=== PATIENT | male | born 1960 | race Caucasian/White ===

== ENCOUNTER 2016-12-27 15:17 | Emergency (ER) | payer MEDICARE ==
[2016-12-27 15:47] LABS: BASOPHILS 0.3 % (0-2); EOSINOPHILS 1.9 % (0-7); HEMATOCRIT 42.1 % (42.0-54.0); HEMOGLOBIN 14.3 g/dL (13.5-17.5); IMMATURE GRANULOCYTES 0.3 % (0-5); LYMPHOCYTES 30.4 % (15-50); MCH 30.4 pg (26.0-34.0); MCV 89.6 fL (80.0-100.0); MEAN PLATELET VOLUME 10.6 fL (7.4-10.4); NEUTROPHILS 59.1 % (40-80); PLATELET COUNT 228 10x3/uL (130-400); WBC 7.5 10x3/uL (4.8-10.8)
[2016-12-27 16:07] LABS: ALBUMIN 4.2 g/dL (3.4-5.0); ALKALINE PHOSPHATASE 88 U/L (46-116); ALT (SGPT) 40 U/L (10-68); BILIRUBIN - TOTAL 0.43 mg/dL (0.2-1.3); CALC OSMOLALITY 271 mosm/kg (275-300); CALCIUM 9.1 mg/dL (8.5-10.1); CARBON DIOXIDE 29.8 mmol/L (21.0-32.0); CHLORIDE - SERUM 98 mmol/L (98-107); GLUCOSE 110 mg/dL (74-106); PROTEIN - SERUM 8.3 g/dL (6.4-8.2); SODIUM 135 mmol/L (136-145); UREA NITROGEN 16 mg/dL (7-18); eGFR NON AFRICAN AMERICAN 37 mL/min (90-120)
[2016-12-27 16:17] LABS: CHOL - HDL RATIO 4.2 ratio (2.3-4.9); CHOLESTEROL, TOTAL 162 mg/dL (0-200); CKMB 0.5 U/L (0.0-3.6); CREATINE KINASE 101 UL (21-232); HDL CHOLESTEROL 39 mg/dL (32-96); LDL CHOLESTEROL 87 mg/dL (0-100); LDL-HDL RATIO 2.2 ratio (1.5-3.5); TRIGLYCERIDE 181 mg/dL (30-200)
[2016-12-27 16:18] LABS: TROPONIN-I < 0.017 ng/mL (0.000-0.060)
== END 2016-12-27 19:09 | disposition home or self-care (01) ==
LOC: D.ER 15:17
PROVIDERS: Emergency Medicine
DX: R07.9 Chest pain, unspecified (principal); I10 Essential (primary) hypertension; F17.200 Nicotine dependence, unspecified, uncomplicated

== ENCOUNTER → 2017-03-06 10:12 | Outpatient (CLI) | payer MEDICARE | END | disposition home or self-care (01) | LOC: D.US 10:12 | DX: I83.812 Varicose veins of left lower extremity with pain (principal) ==

== ENCOUNTER → 2017-12-02 19:09 | Outpatient (CLI) | payer MEDICARE, BC | END | disposition home or self-care (01) | LOC: D.SLEEP 19:09 | DX: G47.33 Obstructive sleep apnea (adult) (pediatric) (principal) ==

== ENCOUNTER → 2018-05-12 18:41 | Outpatient (CLI) | payer MEDICARE, BC | END | disposition home or self-care (01) | LOC: D.MAMMO 14:30 | DX: N63.41 Unspecified lump in right breast, subareolar (principal) ==

== ENCOUNTER → 2018-10-08 09:39 | Outpatient (CLI) | payer MEDICARE, BC ==
[~2018-10-08 09:39] MED LIST: CYMBALTA60 MG PO; HYDROCODON-ACE1 EA10 PO; HYDROCODON-ACE1 EAC2 PO; KEFLEX500 MG PO; ZANAFLEX4 MG PO
== END | disposition home or self-care (01) ==
LOC: D.HCCARDIO 09:39
DX: I20.9 Angina pectoris, unspecified (principal)

== ENCOUNTER 2018-10-08 19:21 | Emergency (ER) | payer MEDICARE, BC ==
[~2018-10-08] VITALS: Ht 170.2 cm; Wt 68.2 kg
[2018-10-08 19:32] VITALS: Ht 170.2 cm; Wt 68.2 kg
[2018-10-08] MEDS ORDERED: HYDROCODON-ACE1 EA10 PO (19:34)
[2018-10-08] MEDS ORDERED: CYMBALTA60 MG PO (19:35)
[2018-10-08] MEDS ORDERED: ZANAFLEX4 MG PO (19:35)
[2018-10-08 20:33] LABS: INR 0.97 (0.85-1.17); PROTIME 12.4 SECONDS (11.6-15.0)
[2018-10-08 20:38] LABS: ALBUMIN 3.8 g/dL (3.4-5.0); ALKALINE PHOSPHATASE 89 U/L (46-116); ALT (SGPT) 38 U/L (10-68); BILIRUBIN - TOTAL 0.51 mg/dL (0.2-1.3); CALC OSMOLALITY 263 mosm/kg (275-300); CHLORIDE - SERUM 96 mmol/L (98-107); GLUCOSE 95 mg/dL (74-106); PROTEIN - SERUM 8.6 g/dL (6.4-8.2); SODIUM 133 mmol/L (136-145); UREA NITROGEN 8 mg/dL (7-18); eGFR NON AFRICAN AMERICAN 81 mL/min (90-120)
[2018-10-08 20:47] LABS: CKMB 0.1 U/L (0.0-3.6); CREATINE KINASE 92 UL (21-232); MAGNESIUM - SERUM 1.9 mg/dL (1.8-2.4); TROPONIN-I < 0.017 ng/mL (0.000-0.060)
[2018-10-08 20:52] LABS: BASOPHILS 0.4 % (0-2); EOSINOPHILS 1.2 % (0-7); HEMATOCRIT 39.3 % (42.0-54.0); HEMOGLOBIN 13.5 g/dL (13.5-17.5); IMMATURE GRANULOCYTES 0.2 % (0-5); LYMPHOCYTES 15.2 % (15-50); MCH 30.1 pg (26.0-34.0); MCHC 34.4 g/dL (31.0-37.0); MCV 87.5 fL (80.0-100.0); MONOCYTES 10.8 % (2-11); NEUTROPHILS 72.2 % (40-80); PLATELET COUNT 213 10x3/uL (130-400); RBC 4.49 10x6/uL (4.20-6.10); RDW 13.4 % (11.5-14.5); WBC 11.4 10x3/uL (4.8-10.8)
[2018-10-08] MEDS ORDERED: HYDROCODON-ACE1 EAC2 PO (20:57)
[2018-10-08] MEDS ORDERED: KEFLEX500 MG PO (20:57)
[2018-10-08 21:09] VITALS: BP 158/79
--- NOTE | 2018-10-12 10:45 | ST ---
PATIENT:KATY MENG MEDICAL RECORD: [id number] SEX: M LOCATION:ER ORDER #: ADMISSION DATE: 10/08/18 AGE OF PATIENT: 58 REFERRING PHYSICIAN: INTERPRETING PHYSICIAN: DAVID AYERS MD DATE OF SERVICE: 10/08/2018 PROCEDURE: Nuclear stress test. INDICATION: Angina, abnormal ECG, hypertension. He was exercised on standard Lexiscan protocol with 32 mCi of sestamibi injected at peak stress. A 10 mCi were used previously for rest images. FINDINGS: Gated SPECT reveals preserved ejection fraction at 65% with good wall motion and thickening and brightening throughout all segments. SPECT imaging Cardiolite was used as myocardial fusion agent. There is homogeneous uptake throughout all segments at rest and stress with no evidence of inducible ischemia or previous infarction. OVERALL IMPRESSION: 1. This is a normal nuclear stress test with no evidence of inducible ischemia or previous infarction. 2. Gated SPECT reveals a preserved ejection fraction at 65%. In this patient with ongoing symptomatology, the current scan does not suggest the presence of hemodynamically significant coronary artery disease. Evaluate noncardiac etiology of chest pain. TRANSINT:[id number] Voice Confirmation ID: [id number] DOCUMENT ID: [id number] DAVID AYERS MD at 1045 CC: [id number] DICTATION DATE: 10/09/18 0847 BUSINESS SUPPORT ADMINISTRATOR: 10/09/18 0924 DEP ER 10/08/[address] [address]
== END 2018-10-08 21:10 | disposition home or self-care (01) ==
LOC: D.ER 19:21
PROVIDERS: Emergency Medicine
DX: J06.9 Acute upper respiratory infection, unspecified (principal)

== ENCOUNTER 2019-04-06 11:10 | Outpatient (CLI) | payer MEDICARE, BC ==
[~2019-04-06] VITALS: Ht 170.2 cm; Wt 102.3 kg
--- NOTE | ~2019-04-06 | HEMODYNAMI ---
PATIENT:DAQUAN MENG MEDICAL RECORD: [id number] : 60 LOCATION:DMADI ADMISSION DATE: 04/06/19 Generatedon:04/06/201914:14 Patient name: DAQUAN MENG Patient #: [id number] SSN: [id number] : 1960 Date of study: 04/06/2019 Page: Of Hemodynamic Procedure Report Patient Data Patient Demographics Procedure consent was obtained First Name: DAQUAN Gender: Male Last Name: YUSRA : 1960 [facility] Initial: O Age: 58 year(s) Patient #: [id number] Race: SSN: [id number] Additional ID: [id number] Contact details [address]: [address] [place] [address] State: [place] City: [place] Zip code: [address] Admission Admission Data Admission Date: 04/06/2019 Admission Time: 11:10 Height (in.): 67 BSA: 2.13 (m2) Height (cm.): 170.18 BMI: 35.31 (kg/m2) Weight (lbs.): 225.47 Weight (kg.): 102.27 Lab Results Lab Result Date: 04/06/2019 Lab Result Time: 11:57 Biochemistry Name Units Result Min Max BUN mg/dl 10 --(-*--)-- 7 18 Creatinine mg/dl 1 --(--*-)-- 0.6 1.3 CBC Name Units Result Min Max Hematocrit % 40.7 -*(----)-- 42 54 Hemoglobin g/dl 14 --(*---)-- 13.5 17.5 Procedure Procedure Types Cath Procedure Diagnostic Procedure [facility] w/Coronaries Procedure Description Procedure Date Procedure Date: 04/06/2019 Procedure Start Time: 14:01 Procedure End Time: 14:14 Procedure Staff Name Function Alpesh Haddad MD Performing Physician Jose Antonio Culver RT Monitor Kashmir Perez RT Scrub Daquan Rincon RN Nurse Hafsa Segun RN Cigar Bander Procedure Data Cath Procedure Fluoroscopy Diagnostic fluoroscopy Total fluoroscopy Time: 2.5 time: 2.5 min min Diagnostic fluoroscopy Total fluoroscopy dose: 416 dose: 416 mGy mGy Contrast Material Contrast Material Type Amount (ml) Isovue 300 68 Entry Location Entry Primary Successful Side Size Upsize Upsize Entry Closure Succes sful Closure Location (Fr) 1 (Fr) 2 (Fr) Remarks Device Remarks Femoral Right 5 Fr Exoseal artery Estimated blood loss: 5 ml Diagnostic catheters Device Type Used For End Catheter Placement MULTIPACK Pigtail 5 Fr Procedure catheter MULTIPACK JL 4.0 5Fr Procedure catheter MULTIPACK 3DRC 5Fr Procedure catheter Procedure Complications No complications Procedure Medications Medication Administration Route Dosage 0.9% NaCl I.V. 100 ml/hr Oxygen etCO2 Nasal cannula 2 l/min Lidocaine 2% added to field 20 Heparin Flush Bag added to field 2 bags (1000units/500ml NS) Versed I.V. 2 mg Fentanyl I.V. 100 mcg Versed I.V. 2 mg Fentanyl I.V. 100 mcg Lopressor I.V. 5 mg Hemodynamics Rest BSA: 2.13 (m2) HGB: 14 (g/dl) O2 Consumption: Estimated: 257.59 (ml/min) O2 Cons umption indexed: Estimated:120.93 (ml/min/m) Heart Rate: 78 (bpm) Pressure Samples Time Site Value (mmHg) Purpose Heart Use Rate(bpm) 14:01 LV 156/11,6 Snapshot 145 14:02 AO 198/106(145) Pullback 84 14:02 LV 162/25,8 Pullback 84 Gradients Valve Time Site 1 Site 2 Mean SEP/DFP Peak To Heart Use (mmHg) (sec/min) Peak Rate (mmHg) (bpm) Aortic 14:02 LV AO 0 84 162/25,8 198/106(145) Calculations Valve P-P Mean Valve Index Valve Source Name Gradient Area Flow (cm2) Aortic 0 0 Snapshots Pre Cath Intra NCS Post Cath Vital Signs Time Heart Resp SPO2 etCO2 NIBP (mmHg) Rhythm Pain Sedation Rate (ipm) (%) (mmHg) Status Level (bpm) 13:31:45 82 11 99 0 188/116(144) NSR 0 (11) 10(A) , No pain 13:37:17 80 22 98 0 191/122(173) NSR 0 (11) 10(A) , No pain 13:41:58 76 19 98 0 191/107(157) NSR 0 (11) 10(A) , No pain 13:46:34 78 14 98 0 182/99(109) NSR 0 (11) 10(A) , No pain 13:51:09 76 14 96 0 178/100(140) NSR 0 (11) 10(A) , No pain 13:55:43 82 14 100 35.1 190/110(160) NSR 0 (11) 10(A) , No pain 14:00:14 80 13 99 44.1 167/107(141) NSR 0 (11) 9(A) , No pain 14:04:42 80 23 92 33.6 172/101(126) NSR 0 (11) 9(A) , No pain 14:10:59 74 19 90 41.8 155/90(93) NSR 0 (11) 10(A) , No pain Medications Time Medication Route Dose Verified Delivered Reason Notes E ffectiveness by by 13:34:14 0.9% NaCl I.V. 100 Alpesh Hafsa used for ml/hr St Asa Cast procedure MD ROD 13:34:20 Oxygen etCO2 2 Alpesh Hafsa used for Nasal l/min Vidalia Segun procedure cannula MD ROD 13:34:29 Lidocaine 2% added 20ml Alpesh Alpesh for local to vial [facility] anesthetic field MD TAO 13:34:33 Heparin Flush added 2 Alpesh Alpesh used for Bag to bags [facility] procedure (1000units/500ml field MD TAO NS) 13:54:45 Versed I.V. 2 mg Alpesh Daquan for sedation St Asa Rincon MD, RN 13:54:54 Fentanyl I.V. 100 Alpesh Daquan for sedation mcg [facility] Asa Rincon MD, RN 14:00:08 Versed I.V. 2 mg Alpesh Daquan for sedation St Asa Rincon MD, RN 14:02:00 Fentanyl I.V. 100 Alpesh Daquan for sedation mcg [facility] Asa Rincon MD, RN 14:07:47 Lopressor I.V. 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 13:17:02 ACCPatient has been prescribed/administered the following anti-anginal medication within the last 2 weeks: Calcium Channel Blockers 13:17:05 Procedure Status Elective Heart Cath (OP). 13:17:06 Kashmir Morelyder RT(R) sent for patient. Start room use. 13:17:07 Time tracking: Regular hours (M-F 7:00 - 5:00) 13:17:10 Plan of Care:Hemodynamics will remain stable., Cardiac rhythm will remain stable., Comfort level will be maintained., Respiratory function will remain adequate., Patient/ family verbilizes understanding of procedure., Procedure tolerated without complication., Recovers from procedure without complications.. 13:17:20 H&P Date Dictated: 04/01/2019 Within 30 days and on chart., H&P Addendum completed by physician on day of procedure. (MUST COMPLETE FOR ALL OUTPATIENTS). 13:29:51 Patient received from Pre/Post Procedure Room to CCL 1 Alert and oriented. Tansferred to table in Supine position. 13:29:52 Warm blankets applied, and flex hugger turned on for patient comfort. 13:29:53 Correct patient and procedure confirmed by team. 13:29:53 ECG and BP/O2 sat monitors applied to patient. 13:30:26 Vital chart was started 13:30:27 Baseline sample Acquired. 13:30:31 Rhythm: sinus rhythm 13:30:34 Full Disclosure recording started 13:30:34 Pre-procedure instructions explained to patient. 13:30:35 Pre-op teaching completed and patient verbalized understanding. 13:30:37 Family in patients room. 13:30:39 Patient NPO since Midnight. 13:30:41 Is the patient allergic to Iodine/contrast media? No. 13:30:43 Is patient on blood thinner?No 13:30:45 Patient diabetic? No. 13:30:48 Previous problem with sedation/anesthesia? No ? 13:30:49 Snore? Yes 13:30:50 Sleep apnea? No 13:30:51 Deviated septum? No 13:30:52 Opens mouth fully? Yes 13:30:53 Sticks out tongue? Yes 13:30:55 Airway obstruction? No ? 13:31:01 Dentures? Yes IN 13:31:05 Pre procedure: right dorsailis pedis pulse 1+ Palpable, but thready & weak; easily obliterated 13:31:08 Patient pain scale 5/10 chest pain. 13:31:13 IV patent on arrival in left forearm with 0.9% NaCl at [facility]. 13:31:15 Lab results completed and on chart. 13:31:35 Right groin area was prepped with chlora-prep and draped in sterile fashion 13:31:36 Alarms reviewed by R. N. 13:31:37 Sharps counted by scrub and verified by R.N. 13:34:14 0.9% NaCl 100 ml/hr I.V. was administered by Hafsa Cast RN; used for procedure; 13:34:20 Oxygen 2 l/min etCO2 Nasal cannula was administered by Hafsa Cast RN; used for procedure; 13:34:29 Lidocaine 2% 20ml vial added to field was administered by Alpesh Haddad MD; for local anesthetic; 13:34:33 Heparin Flush Bag (1000units/500ml NS) 2 bags added to field was administered by Alpesh Haddad MD; used for procedure; 13:36:03 Use device set Femoral Dx 13:36:05 Tegaderm 4 x 4 (1626W) opened to sterile field. 13:36:06 ACIST Hand Control (87741) opened to sterile field. 13:36:07 ACIST Manifold (06760) opened to sterile field. 13:36:08 ACIST Syringe (23137) opened to sterile field. 13:36:08 Bag Decanter (2002S) opened to sterile field. 13:36:09 Medline Cath Pack (EEIF07170) opened to sterile field. 13:36:10 DIAGNOSTIC Multipack 5Fr catheter set (UL5167) opened to sterile field. 13:36:11 SHEATH 5FR [place] (GTO686) opened to sterile field. 13:36:12 EMERALD Guide Wire (975-928) opened to sterile field. 13:38:55 Patient Height : 67 inches 13:39:00 Patient Weight : 225.47 lbs 13:53:29 Physician arrived 13:53:29 --------ALL STOP TIME OUT------ 13:53:30 Final Timeout: patient, procedure, and site verified with staff and physician. All members of the team are in agreement. 13:53:31 Right groin site verified by team. 13:53:34 Fire Safety Assessment: A--An alcohol-based skin anteseptic being used preoperatively., C--Open oxygen or nitrous oxide is being used., D--An ESU, laser, or fiber-optic light is being used. 13:53:37 Physical assessment completed. ASA score P 2 - A patient with mild systemic disease as per Alpesh Haddad MD. 13:53:48 2) 60-89 Mildly reduced kidney function, and other findings (as for stage 1) point to kidney disease. 13:54:01 Maximum allowable contrast dose (3.7 X eGFR X 0.75)225 ml. 13:54:04 Sedation plan: IV Moderate Sedation Medication:Versed, Fentanyl 13:54:45 Versed 2 mg I.V. was administered by Daquan Rincon RN; for sedation; 13:54:54 Fentanyl 100 mcg I.V. was administered by Daquan Rincon RN; for sedation; 13:57:13 Zero performed for pressure channel P1 14:00:08 Versed 2 mg I.V. was administered by Daquan Rincon RN; for sedation; 14:01:50 Procedure started. 14:01:53 Local anesthetic to right femoral artery with Lidocaine 2% by Alpesh Haddad MD.INITIAL ACCESS ONLY 14:02:00 Fentanyl 100 mcg I.V. was administered by Daquan Rincon RN; for sedation; 14:02:09 A 5 Fr sheath was inserted into the Right Femoral artery 14:02:25 A MULTIPACK Pigtail 5 Fr catheter was advanced over the wire and used for Procedure. 14:02:29 LV gram done using GIANG 14:02:32 Injector settings: Ml/sec: 10, Volume: 20, 14:02:34 LV hemodynamics recorded. 14:02:39 EF : 55 % 14:02:40 Catheter exchanged over wire. 14:02:44 A MULTIPACK JL 4.0 5Fr catheter was advanced over the wire and used for Procedure. 14:04:30 LCA angiography performed. 14:05:36 Catheter exchanged over wire. 14:05:40 A MULTIPACK 3DRC 5Fr catheter was advanced over the wire and used for Procedure. 14:07:41 RCA angiography performed. 14:07:42 Catheter removed. 14:07:44 EXOSEAL 5Fr (EX500) opened to sterile field. 14:07:47 Lopressor 5 mg I.V. was administered by Daquan Rincon RN; for hypertension; 14:07:57 Sheath removed intact; hemostasis achieved with Exoseal to the Right Femoral artery. 14:07:58 Procedure ended.(Physican Out) 14:12:25 Fluoroscopy time 02.50 minutes. 14:12:29 Fluoroscopy dose: 416 mGy 14:12:29 Flurop Dose total: 416 14:12:36 Dose Area Product 78488 mGy/cm. 14:12:39 Contrast amount:Isovue 300 68ml. 14:12:42 Maximum allowable dose exceeded? No. 14:12:43 Sharps counted by scrub and verified by R.N. 14:12:44 Insertion/operative site no bleeding no hematoma. 14:12:47 Post-op/insertion site Right Femoral artery dressed using a 4 x 4 and Tegaderm. 14:12:50 Post right femoral artery:stable, soft, clean and dry 14:12:51 Post Procedure Pulses reassessed and unchanged 14:12:53 Post-procedure physical assessment completed. ASA score P 2 - A patient with mild systemic disease as per Alpesh Haddad MD. 14:12:55 Post procedure rhythm: unchanged. 14:13:02 Estimated blood loss: 5 ml 14:13:04 Post procedure instruction explained to patient.Patient verbalizes understanding. 14:13:04 Patient needs reinforcement of post procedure teaching. 14:13:46 Procedure and supply charges have been captured, reviewed, submitted and are correct. 14:13:48 Procedure Complication : No complications 14:13:50 Vital chart was stopped 14:13:50 See physician's report for complete and final results. 14:13:53 Report given to Pre/Post Procedure Room. 14:13:55 Patient transfered to Pre/Post Procedure Room with Stretcher. 14:14:08 Procedure ended. 14:14:08 Full Disclosure recording stopped 14:14:15 End room use (Document Last) Device Usage Item Name Manufacture Quantity Catalog Hospital Part Current Minimal L ot# / Number Charge Number Stock Stock Serial# Code Tegaderm 4 3M 1 1626W [id number] [id number] 256636 5 x 4 (1626W) ACIST Hand Acist 1 69303 893917 318429 849131 5 Control Medical (07408) Systems Inc ACIST Acist 1 29826 220613 288093 173514 5 Manifold Medical (83952) Systems Inc ACIST Acist 1 39916 062774 018237 233269 20 Syringe Medical (95573) Systems Inc Bag Microtek 1 2001S 373026 21427 109490 5 Decanter Medical Inc. (2001S) Medline Medline 1 [id number] 311577 14448 083293 5 Cath Pack (OIZA83580) DIAGNOSTIC Cardinal 1 IA4371 934463 72729 781030 30 Multipack Health 5Fr catheter set (MD5708) SHEATH 5FR Terumo 1 QEG837 195740 350008 224697 5 [place] (CUO416) EMERALD Cardinal 1 502-455 130536 297726 009064 5 Guide Wire Health (502455) MULTIPACK Cardinal 1 243088 5 Pigtail 5 Health Fr catheter MULTIPACK Cardinal 1 966285 5 JL 4.0 5Fr Health catheter MULTIPACK Cardinal 1 357868 5 3DRC 5Fr Health catheter EXOSEAL 5Fr Cardinal 1 EX500 494112 217751 727091 10 (EX500) Health Signature Audit Dania Stage Time Signature Unsigned Intra-Procedure 04/06/2019 Kashmir Perez 2:14:43 PM RT(R) Signatures Performing Physician : Signature : Alpesh Haddad MD Date : Time : Monitor : Jose Antonio Culver RT Signature : Date : Time : Nurse : Daquan Rincon Signature : RN Date : Time : [place] [address] [place] [address]
[2019-04-06] MEDS ORDERED: HYDROCHLOROTHIA25 MG PO (11:39)
[2019-04-06] MEDS ORDERED: NORVASC5 MG PO (11:40)
[2019-04-06] MEDS ORDERED: CATAPRES0.1 MG PO (11:40)
[2019-04-06] MEDS ORDERED: ZANAFLEX4 MG PO (11:41)
[2019-04-06 11:45] VITALS: BP 178/98; Ht 170.2 cm; Wt 102.3 kg
[2019-04-06 12:03] LABS: BASOPHILS 0.3 % (0-2); EOSINOPHILS 3.2 % (0-7); HEMATOCRIT 40.7 % (42.0-54.0); IMMATURE GRANULOCYTES 0.3 % (0-5); LYMPHOCYTES 24.1 % (15-50); MCH 31.6 pg (26.0-34.0); MCHC 34.4 g/dL (31.0-37.0); MCV 91.9 fL (80.0-100.0); MEAN PLATELET VOLUME 9.6 fL (7.4-10.4); MONOCYTES 8.8 % (2-11); NEUTROPHILS 63.3 % (40-80); RBC 4.43 10x6/uL (4.20-6.10); WBC 9.4 10x3/uL (4.8-10.8)
[2019-04-06 12:07] LABS: PLATELET COUNT 278 10x3/uL (130-400)
[2019-04-06 12:10] LABS: CALC OSMOLALITY 269 mosm/kg (275-300); CALCIUM 9.1 mg/dL (8.5-10.1); CARBON DIOXIDE 27.3 mmol/L (21.0-32.0); CHLORIDE - SERUM 101 mmol/L (98-107); GLUCOSE 89 mg/dL (74-106); POTASSIUM - SERUM 4.1 mmol/L (3.5-5.1); SODIUM 136 mmol/L (136-145); UREA NITROGEN 10 mg/dL (7-18); eGFR NON AFRICAN AMERICAN 81 mL/min (90-120)
--- NOTE | 2019-04-06 14:30 | NUR ---
PT RECEIVED VIA STRETCHER FROM [employer]. PT AWAKE, ALERT, DENIES PAIN OR DISCOMFORT. IV PATENT INFUSING VIA ORDERS. HR NSR RATE 68, BP 156/79, O2 SAT 95 ON ROOM AIR. R GROIN W DRESSING THAT IS CDI, NO BLEEDING OR SWELLING NOTED. 5F EXOCELE IN PLACE. PT INSTRUCTED TO KEEP HEAD ON PILLOW AND LEG STRAIGHT, HE VERBALIZED UNDERSTANDING. CALL LIGHT IN REACH, AT BEDSIDE. DR DEAN WAS IN ROOM BEFORE PT AND SPOKE WITH REGARDING PLAN OF CARE AND PROCEDURE RESULTS
--- NOTE | 2019-04-06 15:00 | NUR ---
PT RESTING COMFORTABLY, R GROIN DRESSING REMAINS CDI NO BLEEDING OR HEMATOMA NOTED. LEG PINK AND WARM, PEDAL PULSES PALPABLE. PT DENIES CHEST PAIN OR DISCOMFORT. VSS. CALL LIGHT IN REACH
--- NOTE | 2019-04-06 15:43 | NUR ---
HOB ELEVATED SLIGHTLY, SANDWICH TRAY AND DRINK SERVED. GROIN REMAINS SOFT, DRESSING CDI NO BLEEDING OR SWELLING NOTED. FAMILY AT BEDSIDE, CALL LIGHT IN REACH
--- NOTE | 2019-04-06 16:10 | NUR ---
DISCHARGE INSTRUCTIONS REVIEWED W PT AND , BOTH VERBALIZED UNDERSTANDING. IV REMOVED W CATH INTACT. MONITORS REMOVED AND PT UP TO DRESS FOR DISCHARGE.
--- NOTE | 2019-04-06 16:17 | NUR ---
PT TO BR, VOIDING W/O DIFFICULITY. PT THEN DISCHARGED VIA WC TO PRIVATE VEHICLE WITH ALL BELONGINGS.
--- NOTE | 2019-04-07 13:11 | OP ---
PATIENT NAME: KATY MENG MEDICAL RECORD: [id number] :60 LOCATION:D.CAT ADMISSION DATE: SURGEON: IWONA DEAN MD DATE OF OPERATION: 04/06/2019 PROCEDURE: Left heart catheterization, selective coronary angiography, right femoral artery approach. CATHETERS: A 5-Filipino sheath, 5/4 left and right Viridiana, 5/4 pig. The procedure was well tolerated. The patient returned to trejo. Sheath was removed. ExoSeal device was placed. FINDINGS: Left ventriculography in 30-degree GIANG view: Normal wall motion and normal systolic function. CORONARY ANATOMY: Left main: Left main is free of disease. LAD: Free of disease in the diagonal system. CIRCUMFLEX: Free of disease in the marginal system. RIGHT CORONARY ARTERY: Dominant artery, gives rise to PDA, free of disease. IMPRESSION: Normal left ventricular systolic function. Normal coronary anatomy. 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
== END 2019-04-06 16:15 | disposition home or self-care (01) ==
LOC: D.CATH 11:10
PROVIDERS: ATTEND Internal Medicine Interventional Cardiology
DX: I20.9 Angina pectoris, unspecified (principal); Z01.812 Encounter for preprocedural laboratory examination

== ENCOUNTER 2019-07-10 13:49 | Emergency (ER) | payer MEDICARE, BC ==
[~2019-07-10] VITALS: Ht 170.2 cm; Wt 100.0 kg
[~2019-07-10 13:49] MED LIST changes: +CATAPRES0.1 MG PO; +HYDROCHLOROTHIA25 MG PO; +NORVASC5 MG PO
[2019-07-10 13:50] VITALS: Ht 170.2 cm; Wt 100.0 kg
[2019-07-10 20:15] VITALS: BP 155/79
== END 2019-07-10 20:15 | disposition home or self-care (01) ==
LOC: D.ER 13:49
DX: S50.01XA Contusion of right elbow, initial encounter (principal); S80.02XA Contusion of left knee, initial encounter; W19.XXXA Unspecified fall, initial encounter; T14.8XXA Other injury of unspecified body region, initial encounter; I10 Essential (primary) hypertension

== ENCOUNTER → 2019-11-14 15:11 | Outpatient (CLI) | payer MEDICARE, BC ==
[2019-07-10 13:50] VITALS: BMI 34.5
== END | disposition home or self-care (01) ==
LOC: D.US 15:11
PROVIDERS: ATTEND Clinical Nurse Specialist Adult Health
DX: I83.12 Varicose veins of left lower extremity with inflammation (principal)